=== PATIENT | male | born 1975 | race Caucasian/White ===

== ENCOUNTER 2017-04-28 22:50 | Emergency (ER) | payer OTHER ==
[~2017-04-28] VITALS: Ht 180.3 cm; Wt 104.5 kg
[~2017-04-28 22:50] MED LIST: NOMED
[2017-04-28 22:53] VITALS: BP 133/82; PULSE 78; RESP 16; O2SAT 98
--- NOTE | 2017-04-28 23:03 | ED.REPORT ---
HPI-Extremity Problem Upper Date of Service Apr 28, 2017 ED Provider: Dr. Bo Pt is a 41 y/o male presenting to the ED due to left finger 2 injury which occurred 2 hours prior to arrival. The patient was holding a buoy chain and cutting it with a saw and cut his left index finger about 2 hours ago. The patient reports the environment was quite dirty but he washed it afterwards. He denies pain, swelling, decreased range of motion, numbness, weakness, injuries otherwise. Tdap is up to date. He is right hand dominant. Nursing Notes Stated Complaint: LT INDEX FINGER LACERATION Chief Complaint: Laceration Nursing Notes Reviewed: Yes Allergies: Coded Allergies: No Known Allergies (Unverified Allergy, Unknown, 04/28/17) No Active Prescriptions or Reported Meds General Time Seen by MD: 23:02 Chief Complaint Finger injury left 2 Hx Obtained From: Patient Arrived By: Walk-in Onset Occurred: 1 - 4 hours ago Symptom Duration: Since onset Severity: Current: No pain currently Severity: Maximum: No pain Pertinent Negative: Exacerbated by nothing Recent Healthcare: No recent doctor visit, No recent hospitalization Similar Sx Previous: No Past Medical History Past Medical History Denies Past Surgical History None reported Smoking History Never Smoker Ambulatory Status Independent Review of Systems Constitutional: Denies: Chills, Fever Musculoskeletal: Denies: Extremity pain, Extremity swelling Neurologic: Denies: Numbness, Weakness Complete sys rev & neg: except as marked. Hematologic: Reports Bleeding, Denies Bruising Physical Exam Initial Vital Signs Vital Signs (First) Date Time Temp Pulse Resp B/P Pulse Ox O2 Delivery O2 Flow Rate FiO2 04/28/17 22:53 36.6 78 16 133/82 98 Room Air Initial VS: Reviewed, Vital signs normal Head / Eyes: Atraumatic, Normocephalic, PERRL ENT: Mucous membranes moist, Conjunctiva normal, No scleral icterus Neck: Supple, Full range of motion Respiratory: Breath sounds normal, Clear to auscultation, No respiratory distress Cardiovascular: Regular rate & rhythm, Heart sounds normal, Intact distal pulses Abdomen / GI: Soft, No distention Lower Extremities: Vascular intact, Neuro intact, No swelling, No tenderness Skin: Warm, Dry, No cyanosis Neurologic: Alert, Oriented, Nonfocal Psychiatric: Mood/affect normal, Behavior normal, Normal thought content General/Constitutional: Awake, Alert, No acute distress, Well appearing, Cooperative, Not toxic appearing Wrist / Hand: Full range of motion, No erythema, No snuffbox tenderness, No deformity, Neurologic intact, Vascular intact, No compartment syndrome, No circumferential injury, No clubbing/cyanosis 1.5 cm laceration about proximal phalanx of left index finger Procedures Laceration Management Time: 23:18 Procedure Performed by: ED physician Consent / Setup / Site Prep: Consent from patient, Time-out performed, Hand hygiene observed, Stand sterile technique Location of Wound: Proximal phalanx of left index finger Wound Length: 2 cm (1.5) Local Anesthesia: Lidocaine 1% Digital Block: Yes Digit Involved: Index finger left Wound Preparation: Hibiclens - Chlorhexidine Debridement: None Irrigation: Copious Undermining / Margins: Flaps aligned Repair Skin: ___ O (5), Nylon # Sutures - Skin: 3 Closure Layers: 1 Suture Technique: Simple Post-Procedure / Complications: Antibiotic oint applied, No complications, Condition improved, Tolerated procedure well, Patient stable Re-Eval/Medical Decision Med Decision/Clinical Course The patient has an isolated laceration to the index finger of his left hand, there is no sign of tendon or nerve injury. Re-Evaluation/Progress : Time of Eval: 23:42 Re-Evaluation/Progress Note: Pt rechecked. Informed pt of plan for treatment. Pt understands and agrees with plan for treatment. F/U instructions and RTER warnings given. All questions addressed. Counseled Regarding: Diagnosis, Need for follow-up, When/why to return to ED Discharge & Departure Impression: Primary Impression: Laceration of left index finger Disposition: Home Discharge Condition All VS Reviewed: Yes Condition: Stable Patient Instructions: Laceration (ED) Additional Instructions: Follow-up with a medical professional in 12-14 days for suture removal. This can be performed here in the ER, at Urgent Care, or at your primary care office. Do not wet the wound for 24-36 hours. Afterwards you can clean it but do not soak. Keep the wound clean and covered with antibiotic ointment. Return to the emergency department for signs of infection: redness, swelling, pain, discharge of pus, fever, chills, or for other concerning symptoms. Referrals: [facility] Scribe Attestation Portions of this note were transcribed by Guru Rodriguez. IDr. Bo personally performed the history, physical exam and medical decision-making; I reviewed and confirmed the accuracy of the information in the transcribed note. Signed by Sean Sewell, 04/28/17 - 0 Ursula Bo MD Apr 28, 2017 23:02 GURU RODRIGUEZ Apr 28, 2017 23:19
== END 2017-04-29 00:03 | disposition home or self-care (01) ==
LOC: SED 22:50
DX: S61.211A Laceration without foreign body of left index finger without damage to nail, initial encounter (principal); W27.0XXA Contact with workbench tool, initial encounter; Y93.9 Activity, unspecified; Y92.9 Unspecified place or not applicable; Y99.8 Other external cause status